=== PATIENT | female | born 1950 | race Caucasian/White ===

== ENCOUNTER 2019-05-05 14:50 | Emergency (ER) | payer MEDICARE, OTHER ==
[~2019-05-05] VITALS: Ht 160 cm; Wt 63.0 kg
[~2019-05-05 14:50] MED LIST: LIDOcaine 1% W/epiNEPHrine 1:100,000 20ml vial ONE
[2019-05-05 14:57] VITALS: BP 118/80
[2019-05-05] MEDS ORDERED: bacitracin 15gm ointment TP ONE (15:55)
== END 2019-05-05 17:11 | disposition home or self-care (01) ==
LOC: ER 14:51
DX: S01.21XA Laceration without foreign body of nose, initial encounter (principal); W01.198A Fall on same level from slipping, tripping and stumbling with subsequent striking against other object, initial encounter; Y93.89 Activity, other specified; Y92.89 Other specified places as the place of occurrence of the external cause; Y99.9 Unspecified external cause status
CPT/HCPCS: 12011; 99284

== ENCOUNTER 2019-05-11 05:17 | Emergency (ER) | payer MEDICARE, OTHER ==
[~2019-05-11] VITALS: Ht 160 cm; Wt 59.1 kg
[2019-05-11 06:24] LABS: BASOPHILS # (AUTO) 0.1 X10'3 (0-0.2); BASOPHILS % (AUTO) 0.5 % (0-1); EOSINOPHILS # (AUTO) 0.3 X10'3 (0-0.9); EOSINOPHILS % (AUTO) 2.5 % (0-6); HEMATOCRIT 30.4 % (35.0-45.0); HEMOGLOBIN 10.3 g/dl (12.0-16.0); LYMPHOCYTES # (AUTO) 1.1 X10'3 (1.1-4.8); LYMPHOCYTES % (AUTO) 9.8 % (21-51); MEAN CORPUSCULAR HEMOGLOBIN 27.5 PG (27.0-31.0); MEAN CORPUSCULAR VOLUME 80.7 FL (78-98); MEAN PLATELET VOLUME 7.6 FL (7.4-10.4); MONOCYTES # (AUTO) 0.8 X10'3 (0-0.9); MONOCYTES % (AUTO) 7.3 % (2-12); NEUTROPHILS # (AUTO) 9.2 X10'3 (1.8-7.7); NEUTROPHILS % (AUTO) 79.9 % (42-75); PLATELET COUNT 427 X10'3 (140-440); RED BLOOD COUNT 3.76 X10'6 (4.20-5.60); RED CELL DISTRIBUTION WIDTH 16.1 % (11.5-14.5); WHITE BLOOD COUNT 11.5 X10'3 (4.5-11.0)
[2019-05-11 06:30] LABS: PARTIAL THROMBOPLASTIN TIME 26 SECONDS (22-32)
[2019-05-11 06:34] LABS: ALANINE AMINOTRANSFERASE 23 U/L (12-78); ALBUMIN 3.8 G/DL (3.4-5.0); ALBUMIN/GLOBULIN RATIO 1.1 (1.1-1.5); ALKALINE PHOSPHATASE 62 IU/L (46-116); ANION GAP 10 (8-16); ASPARTATE AMINO TRANSFERASE 19 U/L (10-37); BILIRUBIN,TOTAL 0.6 MG/DL (0.1-1.0); BLOOD UREA NITROGEN 9 MG/DL (7-18); BUN/CREATININE RATIO 11.4 (6.6-38.0); CALCIUM 8.6 MG/DL (8.5-10.1); CHLORIDE 105 MMOL/L (99-107); CREATININE 0.79 MG/DL (0.40-0.90); GLUCOSE 105 MG/DL (70-104); POTASSIUM 3.2 MMOL/L (3.5-5.1); SODIUM 140 MMOL/L (135-145); TOTAL CARBON DIOXIDE 25.3 MMOL/L (24-32); TOTAL PROTEIN 7.3 G/DL (6.4-8.2); eGFR 73 ML/MIN
[2019-05-11] MEDS ORDERED: iohexol 300mg/ml 100ml inj. ONE (07:31)
--- NOTE | 2019-05-11 07:32 | NUR ---
pt out to [place] with director [facility] early [facility] via wheelchair
--- NOTE | 2019-05-11 08:07 | NUR ---
pt returns from [place]
--- NOTE | 2019-05-11 08:20 | NUR ---
advised provider that pt is having a cough attack and is very anxious.
[2019-05-11 10:29] VITALS: BP 150/89
== END 2019-05-11 10:31 | disposition home or self-care (01) ==
LOC: ER 05:18
DX: R06.02 Shortness of breath (principal); R16.0 Hepatomegaly, not elsewhere classified; R19.00 Intra-abdominal and pelvic swelling, mass and lump, unspecified site; J02.9 Acute pharyngitis, unspecified; R05 Cough; Z98.890 Other specified postprocedural states
CPT/HCPCS: 36415; 71045; 71260; 74177; 80053; 83880; 84484; 85025; 85610; 85730; 93005; 99284; Q9967

== ENCOUNTER 2022-09-08 11:03 | Emergency (ER) | payer MEDICARE, OTHER ==
[~2022-09-08] VITALS: Ht 160 cm; Wt 64.2 kg
[2022-09-08] MEDS ORDERED: HYDROcodone/acetaminophen 10/325mg tab PO ONE (15:40)
[2022-09-08 16:32] LABS: ALANINE AMINOTRANSFERASE 30 U/L (12-78); ALBUMIN 3.7 G/DL (3.4-5.0); ALBUMIN/GLOBULIN RATIO 0.9 (1.1-1.5); ALKALINE PHOSPHATASE 56 IU/L (46-116); ANION GAP 7 (8-16); ASPARTATE AMINO TRANSFERASE 29 U/L (10-37); BILIRUBIN,TOTAL 0.5 MG/DL (0.1-1.0); BLOOD UREA NITROGEN 16 MG/DL (7-18); CALCIUM 9.6 MG/DL (8.5-10.1); CHLORIDE 104 MMOL/L (99-107); CREATININE 0.84 MG/DL (0.40-0.90); GLUCOSE 101 MG/DL (70-104); POTASSIUM 3.2 MMOL/L (3.5-5.1); SODIUM 143 MMOL/L (135-145); TOTAL CARBON DIOXIDE 31.7 MMOL/L (24-32); TOTAL PROTEIN 7.6 G/DL (6.4-8.2); eGFR 67 ML/MIN
[2022-09-08 18:14] VITALS: BP 134/73
== END 2022-09-08 18:17 | disposition home or self-care (01) ==
LOC: ER 11:04
DX: S09.90XA Unspecified injury of head, initial encounter (principal); M53.3 Sacrococcygeal disorders, not elsewhere classified; R51.9 Headache, unspecified; W19.XXXA Unspecified fall, initial encounter; Y93.89 Activity, other specified; Y92.89 Other specified places as the place of occurrence of the external cause; Y99.8 Other external cause status
CPT/HCPCS: 36415; 70450; 80053; 93880; 99284

== ENCOUNTER 2024-01-14 07:53 | Outpatient (CLI) | payer MEDICARE, OTHER ==
[2024-01-14] MEDS ORDERED: barium sulfate 450ml oral suspension ONE (09:00)
== END 2024-01-14 23:59 | disposition home or self-care (01) ==
LOC: RAD 07:53
PROVIDERS: ATTEND Surgery
DX: K44.9 Diaphragmatic hernia without obstruction or gangrene (principal); K21.9 Gastro-esophageal reflux disease without esophagitis
CPT/HCPCS: 74220